=== PATIENT | female | born 1985 | race Caucasian/White ===

== ENCOUNTER 2017-07-09 19:22 | Emergency (ER) | payer OTHER ==
[2017-07-09 19:33] VITALS: BP 151/87
[2017-07-09] MEDS ORDERED: Ibuprofen 800 MG Tab PO ONE (19:40)
--- NOTE | 2017-07-09 19:45 | EDM.PDOC ---
ED HPI GENERAL MEDICAL PROBLEM - General Chief Complaint: Upper Extremity Injury/Pain Stated Complaint: RIGHT HAND SLAMMED IN THE CAR DOOR Time Seen by Provider: 07/09/17 19:25 Source of Information: Reports: Patient History Limitations: Reports: No Limitations - History of Present Illness INITIAL COMMENTS - FREE TEXT/NARRATIVE: Patient is a 31-year-old female who had her right hand slammed in the car door. Patient complains of increasing pain along the third and fourth MCP. Limited range of motion to the fingers secondary to pain. No sensory changes distally. Occasionally has some pain that radiates up along her right lateral aspect of her forearm. No other complaints noted. This occurred just prior to arrival. She has not taken any medications. Right Hand Pain Score (Numeric/FACES): 4 - Related Data Allergies Allergy/AdvReac Type Severity Reaction Status Date / Time codeine Allergy Severe Swelling Verified 02/10/15 16:12 Home Meds: Home Meds . 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 Psychiatric History: Reports: Anxiety, Depression, PTSD, Other (See Below) Other Psychiatric History: Post depression - Past Surgical History HEENT Surgical History: Reports: Other (See Below) GI Surgical History: Reports: Other (See Below) Other GI Surgeries/Procedures: laproscopy x 2 Musculoskeletal Surgical History: Reports: Other (See Below) Other Musculoskeletal Surgeries/Procedures:: benign tumor removal Social & Family History - Family History Family Medical History: Noncontributory - Tobacco Use Smoking Status *Q: Never Smoker - Caffeine Use Caffeine Use: Reports: None - Recreational Drug Use Recreational Drug Use: No - Living Situation & Occupation Living situation: Reports: with Family Review of Systems - Review of Systems Review Of Systems: ROS reveals no pertinent complaints other than HPI. ED EXAM, GENERAL - Physical Exam Exam: See Below Exam Limited By: No Limitations General Appearance: Alert, WD/WN, No Apparent Distress Ears: Hearing Grossly Normal Nose: Normal Inspection Throat/Mouth: Normal Voice, No Airway Compromise Head: Atraumatic, Normocephalic Neck: Normal Inspection, Supple Respiratory/Chest: No Respiratory Distress, No Accessory Muscle Use Cardiovascular: Normal Peripheral Pulses, Regular Rate, Rhythm Peripheral Pulses: 4+: Radial (R) Extremities: Other (Family members is noted along the dorsal aspect of the third and fourth MCP. Some slight swelling noted. Decreased range of motion of the third and fourth finger on the affected hand secondary to pain at the MCP. No sensory changes distally. Minimal pain along the third and fourth metacarpal with palpation. No pain on to the wrist and/or anatomical snuffbox. No pain along the forearm as well.) Neurological: Alert, Oriented, CN II-XII Intact, Normal Cognition, No Motor/ Sensory Deficits Psychiatric: Normal Affect, Normal Mood Skin Exam: Warm, Dry, Intact Course - Vital Signs Last Recorded V/S: Last Vital Signs Temp 97.8 F 07/09/17 19:30 Pulse 73 07/09/17 19:30 Resp 16 07/09/17 19:30 BP 151/87 H 07/09/17 19:30 Pulse Ox 99 07/09/17 19:30 - Orders/Labs/Meds Orders: Active Orders 24 hr Category Date Time Status HCG QUALITATIVE,URINE [URCHEM] Stat Lab 07/09/17 19:50 Ordered Labs: Laboratory Tests 07/09/17 Range/Units 19:50 Urine HCG, Qual Negative (NEGATIVE) Meds: Medications Discontinued Medications Generic Name Dose Route Start Last Admin Trade Name Treq PRN Reason Stop Dose Admin Ibuprofen 800 mg 07/09/17 19:40 07/09/17 20:06 Motrin PO 07/09/17 19:41 800 mg ONETIME ONE Administration - Re-Assessments/Exams Free Text/Narrative Re-Assessment/Exam: Order x-ray of the right hand, ibuprofen 800 mg, and urine hCG. Will hold off on the ibuprofen until the hCG is reported back. Patient believes she is not but there may be a chance. 07/09/17 20:26 X-ray of the hand reviewed with Dr. Yee with no acute bony abnormalities noted. Lane wrap applied to the affected hand. Discharge instructions as documented. Departure - Departure Time of Disposition: 20:27 Disposition: Home, Self-Care 01 Condition: Good Clinical Impression: Contusion of hand, right Qualifiers: Encounter type: initial encounter Qualified Code(s): S60.221A - Contusion of right hand, initial encounter - Discharge Information Instructions: Contusion, [id number] Referrals: PCP,None [Primary Care Provider] - Forms: ED Department Discharge, ED Return to Work/School Form Additional Instructions: Wear the Lane wrap as directed. Elevate when able to reduce any swelling and pain. Apply ice to the affected area 4 times daily, 30 minutes in duration, do not apply ice directly. Take ibuprofen and Tylenol in alternating fashion for pain. Follow-up with your primary care provider in the next 7-10 days if pain persists. X-rays may be warranted to evaluate for occult fracture. Return to the ED if you develop any new or worsening symptoms. Refrain from any activities that cause worsening pain. - My Orders Last 24 Hours: My Active Orders 07/09/17 19:50 HCG QUALITATIVE,URINE [URCHEM] Stat - Assessment/Plan Last 24 Hours: My Active Orders 07/09/17 19:50 HCG QUALITATIVE,URINE [URCHEM] Stat
--- NOTE | 2017-07-10 08:37 | CR ---
Right hand: Four views of the right hand were obtained. Comparison: No previous study. Joint spaces are preserved. No fracture, dislocation or other bony abnormality is seen. Impression: 1. No bony abnormality is seen on right hand study. Diagnostic code #1
== END 2017-07-09 20:40 | disposition home or self-care (01) ==
LOC: JD.ED 19:22
DX: S60.221A Contusion of right hand, initial encounter (principal); Z88.5 Allergy status to narcotic agent; W23.0XXA Caught, crushed, jammed, or pinched between moving objects, initial encounter
CPT/HCPCS: 73130; 81025; 99284; A9270